=== PATIENT | female | born 1940 | race Caucasian/White ===

== ENCOUNTER → 2018-03-19 | Outpatient (CLI) | payer MEDICARE | LOC: YCFC.O 15:20 | PROVIDERS: ATTEND Nurse Practitioner Family | DX: N39.0 Urinary tract infection, site not specified (principal) ==

== ENCOUNTER → 2018-06-26 | Outpatient (CLI) | payer MEDICARE | LOC: YCFC.O 10:02 | PROVIDERS: ATTEND Nurse Practitioner Family | DX: E11.9 Type 2 diabetes mellitus without complications (principal); I10 Essential (primary) hypertension ==

== ENCOUNTER → 2019-06-30 | Outpatient (CLI) | payer MEDICARE | LOC: LAB.O 08:21 | PROVIDERS: ATTEND Nurse Practitioner Family | DX: E11.9 Type 2 diabetes mellitus without complications (principal); I10 Essential (primary) hypertension ==

== ENCOUNTER → 2019-12-28 | Outpatient (CLI) | payer MEDICARE | LOC: YCFC.O 11:03 | PROVIDERS: ATTEND Family Medicine | DX: E11.65 Type 2 diabetes mellitus with hyperglycemia (principal); I10 Essential (primary) hypertension; R53.83 Other fatigue ==

== ENCOUNTER → 2020-01-11 | Outpatient (CLI) | payer MEDICARE | LOC: ECHO 09:46 | PROVIDERS: ATTEND Family Medicine | DX: R94.31 Abnormal electrocardiogram [ECG] [EKG] (principal) ==

== ENCOUNTER → 2020-01-14 | Outpatient (CLI) | payer MEDICARE | LOC: NM 08:47 | PROVIDERS: ATTEND Family Medicine | DX: R94.31 Abnormal electrocardiogram [ECG] [EKG] (principal) ==

== ENCOUNTER → 2020-03-28 | Outpatient (CLI) | payer MEDICARE | LOC: YCFC.O 11:09 | PROVIDERS: ATTEND Family Medicine | DX: E11.9 Type 2 diabetes mellitus without complications (principal); D72.819 Decreased white blood cell count, unspecified ==

== ENCOUNTER 2021-01-01 16:13 | Emergency (ER) | payer MEDICARE ==
[2021-01-01 16:53] VITALS: TEMP 97.8
--- NOTE | 2021-01-01 16:55 | CT ---
EXAM DESCRIPTION: Cervical Spine CLINICAL HISTORY: fall COMPARISON: None Available. TECHNIQUE: Cervical CT is performed with thin-section axial imaging. MPRs are created and reviewed as well. This exam was performed according to our departmental dose-optimization program, which includes automated exposure control, adjustment of the mA and/or kV according to patient size and/or use of iterative reconstruction technique. FINDINGS: Normal alignment of the cervical spine with multilevel mild disc degeneration is present with mild posterior bony ridging at the narrowed C3-4 disc space evident. The odontoid and craniocervical junction and ring of C1 appear intact. Multilevel advanced facet arthropathy is present with most significant involvement on the right at C2-3 and C5-6. Hypertrophic changes are most significant on the left at C3-4 and C4-5. No posterior element or spinous process fracture noted. Lamina appear intact and no evidence of jumped facet or corner fracture of the vertebral bodies. Slight rotation of the spine towards the right is evident. Multilevel mild annular bulge is present. No prevertebral or paraspinous soft tissue masses or hematoma is noted. 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 No acute fracture or subluxation or compromise of the bony canal. Electronically signed by: Eamon Watson MD 01/01/2021 4:53 PM [employer] ADMINISTRATIVE ASSISTANT
--- NOTE | 2021-01-01 16:59 | CT ---
EXAM DESCRIPTION: Head CLINICAL HISTORY: fall COMPARISON: None available TECHNIQUE: Non contrast cranial CT with multiplanar reconstructions. FINDINGS: A moderate size left frontal region scalp hematoma (with dermal laceration) measures 5 x 1.1 cm. There is no underlying calvarial fracture. No acute intracranial hemorrhage, hyperdense streak artifact is noted along the left frontal region (series 5 image 32). No intra or extra-axial fluid collection. No focal edema or midline shift. No acute transcortical infarct, mass or mass effect. Scattered hypodensities within the periventricular and deep white matter likely related to chronic microvascular ischemic changes. Likely superimposed small chronic lacunar infarcts within the right kim radiata and right basal ganglia. The ventricle and sulci are normal for age. No hydrocephalus. The visualized paranasal sinuses and the mastoids are unremarkable. IMPRESSION: 1. Left frontal region moderate size scalp hematoma. 2. No calvarial fracture. 3. No acute intracranial abnormality. 4. Chronic white matter changes as above. This exam was performed according to our departmental dose-optimization program, which includes automated exposure control, adjustment of the mA and/or kV according to patient size and/or use of iterative reconstruction technique. Electronically signed by: Melvin Julien DO 01/01/2021 4:57 PM [facility]
--- NOTE | 2021-01-01 17:18 | ED.PDOC ---
History of Present Illness - General Chief Complaint: Trauma Stated Complaint: Abrasion and hematoma front of head from fall Time Seen by Provider: 01/01/21 17:05 Source: patient, RN notes reviewed, Vital Signs reviewed Exam Limitations: no limitations - History of Present Illness Initial Comments: Patient is an 80-year-old white female who was at home tripped and fell landing on her forehead. Patient denies loss of consciousness but she is amnestic to the event. Patient complains of mild headache and neck pain. Patient denies any nausea or vomiting. The pain is throbbing in nature. It is mild in intensity. It is nonradiating and is constant. Nothing makes it better or worse. Occurred: just prior to arrival Severity: mild Pain Location: head Method of Injury: direct blow, fall Improving Factors: nothing Worsening Factors: nothing Loss of Consciousness: no loss of consciousness Associated Symptoms (Fall): denies symptoms Allergies/Adverse Reactions: Allergies NO KNOWN ALLERGY Allergy (Verified 01/01/21 16:56) Home Medications: Ambulatory Orders Aspirin Adult Low Dose 81 mg PO WKLY 12/15/15 Glucophage 2,250 mg PO DAILY 12/15/15 Glyburide 20 mg PO DAILY 12/15/15 Insulin Regular (Human) 12/15/15 Verapamil HCl ER 240 mg PO DAILY 12/15/15 Review of Systems - Review of Systems Constitutional: States: no symptoms reported, see HPI. Denies: chills, fever, malaise, weakness EENTM: States: no symptoms reported. Denies: eye pain, blurred vision, double vision Respiratory: States: no symptoms reported. Denies: cough, short of breath, stridor Cardiology: States: no symptoms reported. Denies: chest pain, palpitations, syncope Gastrointestinal/Abdominal: States: no symptoms reported. Denies: abdominal pain, diarrhea, nausea, vomiting Musculoskeletal: States: see HPI, neck pain. Denies: back pain, joint pain Skin: States: see HPI, change in color - Hematoma on forehead, lumps - Olive forehead Neurological: States: see HPI, headache. Denies: tingling, tremors, weakness Endocrine: States: no symptoms reported. Denies: increased hunger, increased thirst, increased urine Hematologic/Lymphatic: States: no symptoms reported. Denies: blood clots, easy bleeding All other Systems: No Change from Baseline Past Medical History (General) - Patient Medical History Hx Seizures: No Hx Stroke: No Hx Dementia: No Hx Asthma: No Hx of COPD: No Hx Cardiac Disorders: Yes Hx Congestive Heart Failure: No Hx Pacemaker: No Hx Hypertension: Yes Hx Thyroid Disease: No Hx Diabetes: Yes Hx Gastroesophageal Reflux: No Hx Renal Disease: No Hx Cancer: No Hx of HIV: No Hx Hepatitis C: No Hx MRSA: No - Vaccination History Hx Tetanus, Diphtheria Vaccination: Yes Hx Influenza Vaccination: Yes Hx Pneumococcal Vaccination: Yes - Social History Hx Tobacco Use: No Hx Alcohol Use: No - Female History Patient is a Female of Child Bearing Age (10 -59 yrs old): No Patient : No Family Medical History - Family History Mother Family History: No Known Living Status: Physical Exam - Physical Exam General Appearance: Alert, Anxious, Frail, Well Developed, Well Groomed, Well Hydrated, Well Nourished Head Injury: contusions, ecchymosis, swelling, tenderness Eye Exam: bilateral normal ENT Exam: hearing grossly normal, no evidence of ENT injury, no dental injury Neck Exam: non-tender, full range of motion, normal alignment Cardiovascular/Respiratory: regular rate, rhythm, no M/R/G, normal peripheral pulses, no JVD, normal breath sounds, no respiratory distress Gastrointestinal/Abdominal: normal bowel sounds, non tender, soft Back Exam: normal inspection, no CVA tenderness, no vertebral tenderness Extremity Exam: no evidence of injury, normal range of motion, non-tender Neurologic: miller kiln dried salt II-XII nml as tested, no motor/sensory deficits, alert, normal mood/affect, oriented x 3 Skin Exam: normal color, warm/dry - Jada Coma Score Best Eye Response (Jada): (4) open spontaneously Best Verbal Response (Floweree): (5) oriented Best Motor Response (Floweree): (6) obeys commands Floweree Total: 15 Progress - Progress Progress: Differential diagnosis: Fall, head contusion, skull fracture, intraparenchymal bleed among others. 01/01/21 18:33 CT the head and neck is negative for an acute fracture or intracranial bleed. She does have a good size hematoma which is come down nicely after being iced. There is no laceration to repair. Patient has been given her Tdap. Plan on discharge home at this time. I discussed plan of care with the patient she voices understanding and agreement. Thai Doss M.D. #[id number] - Results/Orders Results/Orders: EXAM DESCRIPTION: Head CLINICAL HISTORY: fall COMPARISON: None available TECHNIQUE: Non contrast cranial CT with multiplanar reconstructions. FINDINGS: A moderate size left frontal region scalp hematoma (with dermal laceration) measures 5 x 1.1 cm. There is no underlying calvarial fracture. No acute intracranial hemorrhage, hyperdense streak artifact is noted along the left f rontal region (series 5 image 32). No intra or extra-axial fluid collection. No focal edema or midline shift. No acute transcortical infarct, mass or mass effect. Scattered hypodensities within the periventricular and deep white matter likely related to chronic microvascular ischemic changes. Likely superimposed small chronic lacunar infarcts within the right kim radiata and right basal ganglia. The ventricle and sulci are normal for age. No hydrocephalus. The visualized paranasal sinuses and the mastoids are unremarkable. IMPRESSION: 1. Left frontal region moderate size scalp hematoma. 2. No calvarial fracture. 3. No acute intracranial abnormality. 4. Chronic white matter changes as above. This exam was performed according to our departmental dose-optimization program, which includes automated exposure control, adjustment of the mA and/or kV according to patient size and/or use of iterative reconstruction technique. Electronically signed by: Melvin Julien DO 01/01/2021 4:57 PM [employer] SUPERVISOR EXAM DESCRIPTION: Cervical Spine CLINICAL HISTORY: fall COMPARISON: None Available. TECHNIQUE: Cervical CT is performed with thin-section axial imaging. MPRs are created and reviewed as well. This exam was performed according to our departmental dose-optimization program, which includes automated exposure control, adjustment of the mA and/or kV according to patient size and/or use of iterative reconstruction technique. FINDINGS: Normal alignment of the cervical spine with multilevel mild disc degeneration is present with mild posterior bony ridging at the narrowed C3-4 disc space e vident. The odontoid and craniocervical junction and ring of C1 appear intact. Multilevel advanced facet arthropathy is present with most significant involvement on the right at C2-3 and C5-6. Hypertrophic changes are most significant on the left at C3-4 and C4-5. No posterior element or spinous process fracture noted. Lamina appear intact and no evidence of jumped facet or corner fracture of the vertebral bodies. Slight rotation of the spine towards the right is evident. Multilevel mild annular bulge is present. No prevertebral or paraspinous soft tissue masses or hematoma is noted. 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 No acute fracture or subluxation or compromise of the bony canal. Electronically signed by: Eamon Watson MD 01/01/2021 4:53 PM 01/01/21 16:26 EKG Assessment ONCE 01/01/21 16:30 EKG STAT EKG performed on 01 January 2021 at 1652 hrs.: Normal sinus rhythm at 91 bpm, left atrial enlargement, right bundle branch block, left anterior fascicular block, LVH, abnormal EKG. No comparison EKG available at this time. Vital Signs 01/01/21 01/01/21 01/01/21 16:26 16:35 17:13 Temperature 97.8 F 97.8 F Pulse Rate [ 86 84 Right Radial] Respiratory 18 18 Rate Blood Pressure 223/96 219/99 [Left Arm] O2 Sat by Pulse 96 96 Oximetry Departure - Departure Clinical Impression: Hematoma and contusion, Need for prophylactic vaccination against diphtheria, tetanus, acellular pertussis, poliovirus, and hepatitis B virus Forehead contusion Qualifiers: Encounter type: initial encounter Qualified Code(s): S00.83XA - Contusion of other part of head, initial encounter Fall Qualifiers: Encounter type: initial encounter Qualified Code(s): W19.XXXA - Unspecified fall, initial encounter Closed head injury Qualifiers: Encounter type: initial encounter Qualified Code(s): S09.90XA - Unspecified injury of head, initial encounter Time of Disposition: 18:34 Disposition: Discharge to Home or Self Care Condition: Good Departure Forms: ED Discharge - Pt. Copy, Patient Portal Self Enrollment Instructions: DI for Trauma, Concussion, Adult (DC), Contusion (DC), Minor Contusion ED Diet: resume usual diet Activity: increase activity as tolerated Referrals: Ryan Griffiths MD [Primary Care Provider] - 1-5 Days Home Medications: Ambulatory Orders Aspirin Adult Low Dose 81 mg PO WKLY 12/15/15 Glucophage 2,250 mg PO DAILY 12/15/15 Glyburide 20 mg PO DAILY 12/15/15 Insulin Regular (Human) 12/15/15 Verapamil HCl ER 240 mg PO DAILY 12/15/15
[2021-01-01] MEDS ORDERED: NEOMYCIN-BACITRACIN-POLYMYXIN 0.9 GM UD TOP ONE (17:38)
[2021-01-01] MEDS ORDERED: TETANUS,DIPHTHERIA,PERTUSSIS 1 EA SYG IM ONE (17:44)
[2021-01-01 18:48] VITALS: BP 162/89; O2SAT 95
== END 2021-01-01 18:40 | disposition home or self-care (01) ==
LOC: ER 16:13
DX: S09.90XA Unspecified injury of head, initial encounter (principal); S00.81XA Abrasion of other part of head, initial encounter; M54.2 Cervicalgia; I45.10 Unspecified right bundle-branch block; I44.4 Left anterior fascicular block; M47.812 Spondylosis without myelopathy or radiculopathy, cervical region; E11.9 Type 2 diabetes mellitus without complications; I10 Essential (primary) hypertension; I51.9 Heart disease, unspecified; Z79.82 Long term (current) use of aspirin; Z79.899 Other long term (current) drug therapy; W01.0XXA Fall on same level from slipping, tripping and stumbling without subsequent striking against object, initial encounter; Y92.009 Unspecified place in unspecified non-institutional (private) residence as the place of occurrence of the external cause